=== PATIENT | female | born 1995 | race Hispanic/Latino ===

== ENCOUNTER 2021-06-02 21:57 | Emergency (ER) | payer MEDICAID ==
[~2021-06-02] VITALS: Ht 152.4 cm; Wt 56.2 kg
[2021-06-02] MEDS ORDERED: TETANUS/DIPHTHERIA TOXOID [ADULT] 0.5 ML VIAL IM ONE (23:00)
[2021-06-02] MEDS ORDERED: ACETAMINOPHEN WITH CODEINE 1 TAB TAB PO ONE (23:00)
[2021-06-02] MEDS ORDERED: CYCLOBENZAPRINE HCL 10 MG TABLET PO ONE (23:00)
[2021-06-02] MEDS ORDERED: IBUP-1552 PO (23:43)
[2021-06-02] MEDS ORDERED: CYCL10TA16 PO (23:43)
[2021-06-02 23:48] VITALS: BP 132/65
== END 2021-06-02 23:54 | disposition home or self-care (01) ==
LOC: EDH 21:57
DX: S30.0XXA Contusion of lower back and pelvis, initial encounter (principal); S30.810A Abrasion of lower back and pelvis, initial encounter; X58.XXXA Exposure to other specified factors, initial encounter; Y93.89 Activity, other specified; Y92.89 Other specified places as the place of occurrence of the external cause; Y99.8 Other external cause status
CPT/HCPCS: 72100; 81025; 90471; 90714

== ENCOUNTER 2022-11-23 11:07 | Emergency (ER) | payer MEDICAID ==
[~2022-11-23] VITALS: Ht 162.6 cm; Wt 52.2 kg
[~2022-11-23 11:07] MED LIST: CYCL10TA16 PO; IBUP-1552 PO
[2022-11-23] MEDS ORDERED: LIDOCAINE HCL 1% 20 ML VIAL INJ SCH (12:00)
[2022-11-23] MEDS ORDERED: TETANUS/DIPHTHERIA TOXOID [ADULT] 0.5 ML VIAL IM ONE (12:00)
[2022-11-23] MEDS ORDERED: CEFTRIAXONE 1G VIAL IM ONE (14:30)
[2022-11-23] MEDS ORDERED: CEPH500B PO (14:34)
[2022-11-23 16:49] VITALS: BP 118/68
== END 2022-11-23 16:51 | disposition home or self-care (01) ==
LOC: EDH 11:07
DX: S62.522A Displaced fracture of distal phalanx of left thumb, initial encounter for closed fracture (principal); S61.012A Laceration without foreign body of left thumb without damage to nail, initial encounter; S67.02XA Crushing injury of left thumb, initial encounter; Z79.1 Long term (current) use of non-steroidal anti-inflammatories (NSAID); W23.0XXA Caught, crushed, jammed, or pinched between moving objects, initial encounter; Y93.89 Activity, other specified; Y92.89 Other specified places as the place of occurrence of the external cause; Y99.8 Other external cause status
CPT/HCPCS: 99284; 90714; 73140; 96372; 90471; 12001; J0696